=== PATIENT | female | born 1935 | race Caucasian/White ===

== ENCOUNTER 2017-01-13 06:21 | Day surgery (SDC) | payer OTHER ==
[~2017-01-13] VITALS: Ht 157.5 cm; Wt 62.1 kg
[~2017-01-13 06:21] MED LIST: DIGO0.1262 PO; FAM20T PO; FURO20TA PO; LEVO88TA4 PO; LOSA50TA6 PO; MAGN400T5 PO; METO-159 PO; POT20T PO; PROM25TA5 PO; RIVA20TA PO; SIMV-8 PO; TRAM50TA2 PO
[2017-01-13] MEDS ORDERED: fentaNYL CITRATE 100 MCG/2 ML VL ONE (06:45)
[2017-01-13] MEDS ORDERED: MIDAZOLAM HCL 1MG/1ML-2 ML VIAL ONE (06:45)
[2017-01-13] MEDS ORDERED: ceFAZolin 1GM/50ML D5W 50 ML IV ONE (07:39)
[2017-01-13] MEDS ORDERED: LIDOCAINE 2%HCL (LOCAL ANESTH.) INJ 20ML MDV ONE (07:41)
[2017-01-13] MEDS ORDERED: ASPI81TA27 PO (10:11)
== END 2017-01-13 13:01 | disposition home or self-care (01) ==
LOC: CATH 06:21
PROVIDERS: ATTEND Specialist
DX: I48.91 Unspecified atrial fibrillation (principal); Z90.710 Acquired absence of both cervix and uterus; Z95.0 Presence of cardiac pacemaker
CPT/HCPCS: 93650; J0690; J1644; J2250; J3010; J7030

== ENCOUNTER 2020-07-17 07:00 | Day surgery (SDC) | payer OTHER ==
[~2020-07-17] VITALS: Ht 157.5 cm; Wt 51.7 kg
[~2020-07-17 07:00] MED LIST changes: +ASPI-543 PO; -FAM20T PO; +FAMO20TA10 PO; +FURO1TAB33 PO; -FURO20TA PO; +LOSA-69 PO; -LOSA50TA6 PO; +MAGN400T40 PO; -MAGN400T5 PO
[2020-07-17] MEDS ORDERED: LIDOCAINE VISCOUS 2% 15ML UD PO ONE (07:45)
[2020-07-17] MEDS ORDERED: fentaNYL CITRATE 100 MCG/2 ML VL IV ONE (07:45)
[2020-07-17] MEDS ORDERED: diphenhdrAMINE HCL 50 MG/1 ML VL IV ONE (07:45)
[2020-07-17] MEDS ORDERED: MIDAZOLAM HCL 1MG/1ML-2 ML VIAL IV ONE (07:45)
[2020-07-17] MEDS ORDERED: ONDANSETRON HCL 4 MG/2 ML VIAL IV PRN (09:15)
== END 2020-07-17 10:18 | disposition home or self-care (01) ==
LOC: CATH 07:00
PROVIDERS: ATTEND Internal Medicine Cardiovascular Disease
DX: I48.91 Unspecified atrial fibrillation (principal); E78.5 Hyperlipidemia, unspecified; I25.10 Atherosclerotic heart disease of native coronary artery without angina pectoris; I67.9 Cerebrovascular disease, unspecified; I25.810 Atherosclerosis of coronary artery bypass graft(s) without angina pectoris; I11.0 Hypertensive heart disease with heart failure; Z20.828 Contact with and (suspected) exposure to other viral communicable diseases; Z98.890 Other specified postprocedural states; Z90.710 Acquired absence of both cervix and uterus; Z79.899 Other long term (current) drug therapy
CPT/HCPCS: 93312; J2250; J3010; U0003; 99152